=== PATIENT | male | born 1955 | race Caucasian/White ===

== ENCOUNTER 2016-11-09 15:03 | Outpatient (CLI) | payer OTHER ==
[~2016-11-09] VITALS: Ht 170.2 cm; Wt 77.3 kg
[2016-11-09 15:13] VITALS: BP 139/67; PULSE 69; RESP 18; Ht 170.2 cm; Wt 77.3 kg
[2016-11-09] MEDS ORDERED: ATOR40TA68 PO (15:48)
[2016-11-09] MEDS ORDERED: SUCR1TAB56 PO (15:48)
[2016-11-09] MEDS ORDERED: PANT40TA4 PO (15:48)
--- NOTE | 2016-11-09 16:33 | PN ---
Date/Time of Note Date/Time of Note DATE: 11/09/16 TIME: 16:30 Outpatient Progress Note Chief Complaint Anemia/PUD/hyperlipidemia HPI Anemia/patient feels slight weakness and tiredness, patient was anemic, patient was transfused 2 units of packed cells in the hospital, patient was recently hospitalized for dizziness, patient was significantly anemic, PUD/no nausea or vomiting, hematemesis melena, patient had upper GI bleed, patient had EGD, patient on multiple medication, Hyperlipidemia/no xanthoma, on medication, no side effect of medication, Review of Systems Const: No Fever, no chills, no Wt. loss, no Fatigue, normal appetite, no diaphoresis. Eyes: No pain, no discharge, no redness, no visual change, no foreign body. ENT: No pain, no bleeding, no congestion, no sore throat, no dysphagia, no discharge or rhinitis. Lymph: No adenopathy, no tender nodes, no lymphedema. Resp: No SOB, no cough, no sputum, no wheezing, no chest pain. CV: No chest pain, no palpitaions, no GODFREY, no PND, no edema. GI: Normal appetite, mild epigastric pain, no nausea, no vomiting, no diarrhea, no blood, no constipation. : No frequency, no urgency, no dysuria, no hematuria, no flank pain, no discharge, no bleeding. Musc: No bone/joint pain, no back pain, no neck pain, no knee pain, no restricted ROM. Skin: No rash, no skin lesions, no erythema, no laceration, no bruising, no pruritus. Neuro: No CALL, no dizziness, no syncope, no seizure, no focal-weakness. Endo: No polyuria, no polydypsia, no dry-skin, no temp-intolerance. Psych: No hallucinations, no depression, no anxiety, no suicidal ideation. Ext: No edema, no pain, no ulcer, no weakness. Physical Exam Vital Signs Date Time Temp Pulse Resp B/P Pulse Ox O2 Delivery O2 Flow Rate FiO2 11/09/16 15:13 98.0 69 18 139/67 General Appearance: A 61 year-old male who appears well-developed, well- nourished, in no acute distress. HEENT: Head normocephalic, atraumatic. Pupils equal, round, reactive to light and accommodate. Sclerae are no jaundice. Nasal turbinates pink without erythema or nasal discharge. Mucous membranes pink and moist without lesions. Oropharynx clear without any exudate or discharge. NECK: Supple. Trachea midline, No thyromegaly, No cervical lymphadenopathy, No mass, No carotid bruits, No JVD, Carotid pulses 2+ bilaterally. PULMONARY: Clear to auscultaion bilaterally, No retractions, Chest expansion symmetric bilaterally, no rales, no ronchi, no dulness on percussion. CARDIAC: Normal SI and S2, Regular rate and rythm, no murmur, gallop, or rub. GASTROINTESTINAL: Abdomen is soft, n mild epigastric discomfort,, Non Rigid, No distention, Positive bowel sounds x4 quadrants, Liver normal. SKIN: Warm, dry, no rash, no bruise, no echmosis. EXTREMITIES: Bilateral lower extremities normal, no edema, no phlabitus, pulse palpable, no contracture. MUSCULOSKELETAL: Spine Normal, Non-tender, Normal range of motion, No swelling, no deformity, no clubbing, or cyanosis, the patient has no edema to bilateral lower extremities, dorsalis pedis pulses palpable bilaterally. NEUROLOGIC: The patient is awake, alert, oriented, responding to yes/no questions appropriately, moving all extremities, cranial nerve intact, normal strenght, normal power, normal coordination, normal gait. Allergies Coded Allergies: ibuprofen (Verified Allergy, Unknown, 11/09/16) PMH PUD/GI bleed/anemia/hyperlipidemia Social Hx No smoking no drinking, Family Hx Noncontributory, Assessment/Plan Impression Anemia/PUD/hyperlipidemia Plan Patient was recently hospitalized with a severe anemia and dizziness, patient fell better, still slight weakness, patient not on any iron, patient was transfused 2 units of packed cell, We will repeat CBC in 7-10 days, and will decide with the patient needs iron or not, Continue all medications supportive care, Patient encouraged to follow with the primary care physician, Medications Home Meds Reported Medications Atorvastatin* (Atorvastatin*) 40 Mg Tablet, 40 MG PO QHS, #30 TAB 11/09/16 Sucralfate* (Carafate*) 1 Gm Tab, 1 GM PO Q6, TAB 11/09/16 Pantoprazole* (Pantoprazole*) 40 Mg Tablet.dr, 40 MG PO AC BREAKFAST, TAB 11/09/16 TERI LUNA MD Nov 09, 2016 16:33
== END 2016-11-09 16:30 | disposition home or self-care (01) ==
LOC: DCC 15:03
PROVIDERS: ATTEND Internal Medicine
DX: D64.9 Anemia, unspecified (principal); K27.9 Peptic ulcer, site unspecified, unspecified as acute or chronic, without hemorrhage or perforation; E78.5 Hyperlipidemia, unspecified

== ENCOUNTER 2016-11-23 14:09 | Outpatient (CLI) | payer OTHER ==
[~2016-11-23] VITALS: Ht 170.2 cm; Wt 76.8 kg
[~2016-11-23 14:09] MED LIST: ATOR40TA68 PO; PANT40TA4 PO; SUCR1TAB56 PO
[2016-11-23 14:20] VITALS: BP 127/60; PULSE 81; RESP 18; Ht 170.2 cm; Wt 76.8 kg
--- NOTE | 2016-11-23 14:54 | PN ---
Date/Time of Note Date/Time of Note DATE: 11/23/16 TIME: 14:51 Outpatient Progress Note Chief Complaint Anemia/PUD/hyperlipidemia HPI Anemia/patient was recently hospitalized with anemia, patient was transfused, patient feeling better, no nausea or vomiting, no abdominal pain, no heartburn, PUD/no hematemesis melena, no heartburn, on medication, no side effect of medication, Hyperlipidemia/no xanthoma, on medication, no side effect, Review of Systems Const: No Fever, no chills, no Wt. loss, no Fatigue, normal appetite, no diaphoresis. Eyes: No pain, no discharge, no redness, no visual change, no foreign body. ENT: No pain, no bleeding, no congestion, no sore throat, no dysphagia, no discharge or rhinitis. Lymph: No adenopathy, no tender nodes, no lymphedema. Resp: No SOB, no cough, no sputum, no wheezing, no chest pain. CV: No chest pain, no palpitaions, no GODFREY, no PND, no edema. GI: Normal appetite, no pain, no nausea, no vomiting, no diarrhea, no blood, no constipation. : No frequency, no urgency, no dysuria, no hematuria, no flank pain, no discharge, no bleeding. Musc: No bone/joint pain, no back pain, no neck pain, no knee pain, no restricted ROM. Skin: No rash, no skin lesions, no erythema, no laceration, no bruising, no pruritus. Neuro: No CALL, no dizziness, no syncope, no seizure, no focal-weakness. Endo: No polyuria, no polydypsia, no dry-skin, no temp-intolerance. Psych: No hallucinations, no depression, no anxiety, no suicidal ideation. Ext: No edema, no pain, no ulcer, no weakness. Physical Exam General Appearance: A 61 year-old male who appears well-developed, well- nourished, in no acute distress. HEENT: Head normocephalic, atraumatic. Pupils equal, round, reactive to light and accommodate. Sclerae are no jaundice. Nasal turbinates pink without erythema or nasal discharge. Mucous membranes pink and moist without lesions. Oropharynx clear without any exudate or discharge. NECK: Supple. Trachea midline, No thyromegaly, No cervical lymphadenopathy, No mass, No carotid bruits, No JVD, Carotid pulses 2+ bilaterally. PULMONARY: Clear to auscultaion bilaterally, No retractions, Chest expansion symmetric bilaterally, no rales, no ronchi, no dulness on percussion. CARDIAC: Normal SI and S2, Regular rate and rythm, no murmur, gallop, or rub. GASTROINTESTINAL: Abdomen is soft, no epigastric tender, Non Rigid, No distention, Positive bowel sounds x4 quadrants, Liver normal. SKIN: Warm, dry, no rash, no bruise, no echmosis. EXTREMITIES: Bilateral lower extremities normal, no edema, no phlabitus, pulse palpable, no contracture. MUSCULOSKELETAL: Spine Normal, Non-tender, Normal range of motion, No swelling, no deformity, no clubbing, or cyanosis, the patient has no edema to bilateral lower extremities, dorsalis pedis pulses palpable bilaterally. NEUROLOGIC: The patient is awake, alert, oriented, responding to yes/no questions appropriately, moving all extremities, cranial nerve intact, normal strenght, normal power, normal coordination, normal gait. Allergies Coded Allergies: ibuprofen (Verified Allergy, Unknown, 11/09/16) PMH No change Social Hx No change Family Hx No change Assessment/Plan Impression Anemia/PUD/hyperlipidemia Plan Patient doing extremely well, no restriction, patient advised to resume work, Patient encouraged to follow with the primary care physician, Patient has all the medication and supply, Patient education done and explained what to watch for, Medications Home Meds Reported Medications Atorvastatin* (Atorvastatin*) 40 Mg Tablet, 40 MG PO QHS, #30 TAB 11/09/16 Sucralfate* (Carafate*) 1 Gm Tab, 1 GM PO Q6, TAB 11/09/16 Pantoprazole* (Pantoprazole*) 40 Mg Tablet., 40 MG PO AC BREAKFAST, TAB 11/09/16 TERI LUNA MD Nov 23, 2016 14:54
== END 2016-11-23 16:32 | disposition home or self-care (01) ==
LOC: DCC 14:09
PROVIDERS: ATTEND Internal Medicine
DX: D64.9 Anemia, unspecified (principal); K27.9 Peptic ulcer, site unspecified, unspecified as acute or chronic, without hemorrhage or perforation; E78.5 Hyperlipidemia, unspecified

== ENCOUNTER 2017-04-18 05:50 | Day surgery (SDC) | payer OTHER ==
[~2017-04-18] VITALS: Ht 167.6 cm; Wt 77.6 kg
[2017-04-18 06:31] VITALS: Ht 167.6 cm; Wt 77.6 kg
[2017-04-18 06:57] VITALS: BP 160/76; PULSE 59; RESP 18
--- NOTE | 2017-04-18 07:44 | OPPN ---
Date/Time of Note Date/Time of Note DATE: 04/18/17 TIME: 07:43 Operative Report Preoperative Diagnosis Abdominal pain History of bleeding peptic ulcer disease Postoperative Diagnosis Gastritis Biopsy was positive for H. pylori infection Operation/Procedure Performed Esophagogastroduodenoscopy and biopsy Surgeon see signature line assistant professor of education None Anesthesia: moderate sedation Estimated blood loss: none Transfusion Required none Specimen Gastric mucosal biopsy Grafts/Implants none Complications none GRAYSON VINES MD Apr 18, 2017 07:44
[2017-04-18] MEDS ORDERED: FENTAnyl 50 MCG/ML VIAL ONE (07:45)
[2017-04-18] MEDS ORDERED: MIDAZOLAM 1 MG/ML 2 ML INJ ONE (07:45)
[2017-04-18 08:08] VITALS: BP 131/72; RESP 14
--- NOTE | 2017-04-18 11:01 | GILP ---
DATE OF PROCEDURE: NAME OF PROCEDURES: Esophagogastroduodenoscopy and biopsy. SURGEON: Grayson Reaves MD PREOPERATIVE DIAGNOSES: 1. Abdominal pain. 2. History of bleeding peptic ulcer disease. POSTOPERATIVE DIAGNOSES 1. Gastritis. 2. Biopsy was positive for Helicobacter pylori infection. INDICATION FOR THE PROCEDURE: Mr. Dhaval Milligan is a 61-year-old male patient who had upper abdomin al pain, not responding to therapy. The patient had history of bleeding peptic ulcer disease. The patient was scheduled for endoscopic examination for further evaluation. The procedure and possible complications are well explained to the patient. The patient understood and consented to the procedure. DESCRIPTION OF PROCEDURE: Under the influence of fentanyl and Versed, the gastroscope was carefully introduced into the esophagus and under direct vision it was advanced to the stomach and through th e pylorus into the duodenal bulb and descending duodenum. FINDINGS: ESOPHAGUS: The mucosa was normal. STOMACH: The patient had gastritis and biopsy was positive for Helicobacter pylori infection. DUODENUM: Normal. He tolerated the procedure very well and there were no complications from the procedure. At the end of the procedure, he was awake with stable vital signs and he was discharged home to the care of hi s family. IMPRESSION: Please see postoperative diagnosis. PLAN: 1. Flagyl 500 mg p.o. b.i.d. for 14 days. 2. Doxycycline 100 mg p.o. b.i.d. for 14 days. 3. Zantac 300 mg p.o. b.i.d. for 14 days. 4. Pepto-Bismol 2 tablets p.o. q.i.d. for 14 days. Dictated By: GRAYSON VARGAS/GODFREY Conf#: [id number] DID#: [id number]
--- NOTE | 2017-04-19 09:51 | CONS ---
DATE OF ADMISSION: 04/18/2017 DATE OF CONSULTATION: TYPE OF CONSULTATION: Preoperative Gastroenterology. I thank you very much for this kind referral. HISTORY OF PRESENT ILLNESS: Mr. Dhaval Mares is a 61-year-old male patient who has been referred to me for further evaluation of upper abdominal pain. The patient had bleeding peptic ulcer for which he has undergone endoscopy 3 months ago and he is being treated with medications. He is not taking any nonsteroidal anti-inflammatory agents. His appetite has been good and he is not losing any nikko ght. No history of gallstones or liver disease. Denies any change in the bowel habit or rectal ble eding. Patient states he had a colonoscopy 3 years ago and no colon neoplasm was identified. Not a hypertensive or diabetic. No heart disease or lung problem or kidney disease. Nonsmoker, no alcoh ol abuse. No family history of gastrointestinal tract neoplasm. ALLERGIES: ALLERGIC TO IBUPROFEN. MEDICATIONS: Takes medicine for the stomach, does not remember the names. PHYSICAL EXAMINATION: GENERAL: He is 5 feet 6 inches tall, weighs 170 pounds. HEART: Normal heart sounds. LUNGS: Clear. ABDOMEN: Soft. No masses. Normal bowel sounds. NEUROLOGIC: Normal neurological exam. IMPRESSION: 1. Upper abdominal pain. 2. History of bleeding peptic ulcer disease. 3. The patient states he had a colonoscopy 3 years ago and no colon neoplasm was identified. 4. ALLERGY TO IBUPROFEN. PLAN: Endoscopy for further evaluation. The procedure and possible complications are well explained to the patient. He understands and cons ents to the procedure. I thank you once again. With warmest personal regards, Dictated By: GRAYSON VARGAS/GODFREY Conf#: [id number] DID#: [id number]
== END 2017-04-18 09:38 | disposition home or self-care (01) ==
LOC: GIL 05:50
PROVIDERS: ATTEND Internal Medicine Gastroenterology
DX: K29.70 Gastritis, unspecified, without bleeding (principal); B96.81 Helicobacter pylori [H. pylori] as the cause of diseases classified elsewhere
CPT/HCPCS: 43239; 87081; J2250; J3010; Z7610